=== PATIENT | female | born 1975 | race Caucasian/White ===

== ENCOUNTER 2023-09-22 20:07 | Emergency (ER) | payer BC ==
[2023-09-22] MEDS ORDERED: FLONASE ALLERG9.9 ML NS (20:40)
[2023-09-22] MEDS ORDERED: SINGULAIR PO (20:41)
[2023-09-22] MEDS ORDERED: FEXOFENADINE HY60 MG PO (20:41)
[2023-09-22] MEDS ORDERED: Acetaminophen 325 MG TAB PO ONE (21:45)
[2023-09-22] MEDS ORDERED: Home HYDROcodone/Acetaminophen 5/325 MG #4 TABS/PACK PO ONE (22:45)
[2023-09-22 22:53] VITALS: BP 141/91
== END 2023-09-22 22:53 | disposition home or self-care (01) ==
LOC: ED 20:07
DX: S86.112A Strain of other muscle(s) and tendon(s) of posterior muscle group at lower leg level, left leg, initial encounter (principal); X50.1XXA Overexertion from prolonged static or awkward postures, initial encounter; Y93.79 Activity, other specified sports and athletics; Y92.39 Other specified sports and athletic area as the place of occurrence of the external cause
CPT/HCPCS: L4386